=== PATIENT | female | born 2000 | race Hispanic/Latino ===

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

== ENCOUNTER 2019-04-03 02:23 | Inpatient (IN) | payer MEDICAID, OTHER ==
[2019-04-03 03:24] LABS: Bacteria,Urine 1+ /HPF (Negative); Bilirubin,Urine NEG (Negative); Blood,Urine NEG (Negative); Color,Urine Yellow (Yellow); Mucus,Urine FEW /HPF; Protein,Urine <15 mg/dL mg/dL (Negative); Urobilinogen,Urine < 2.0 mg/dL (<2.0)
[2019-04-03] MEDS ORDERED: LIDOCAINE (2%) 20 MG/1 ML VIAL 20 ML MDV INFILTRATI ONE (06:46)
[2019-04-03] MEDS ORDERED: fentaNYL 100 MCG/2 ML INJ IV PRN (06:46)
[2019-04-03] MEDS ORDERED: ePHEDrine SULFATE 50 MG/1 ML INJ IV PRN (06:46)
[2019-04-03] MEDS ORDERED: TERBUTALINE 1 MG/1 ML INJ SUB-Q PRN (06:46)
--- NOTE | 2019-04-03 06:55 | History and Physical Report ---
History of Present Illness Date of examination: 04/03/19 Date of admission: 04/03/2019 Chief complaint: Contractions History of present illness: 18 year old presents to L&D with contractions. Patient reports active movement. Denies leaking of fluid or vaginal bleeding. Patient received care at [facility] and she brings records with her. LMP 06/27/18. EDC 04/03/2019. significant for the following: chlamydia (treated and cured). labs are as follows: A positive, antibody screen negative, rubella immune, hepatitis B surface antigen negative, HIV negative, RPR nonreactive, chlamydia positive/negative, gonorrhea negative/negative, GBS negative, quad screen negative, 1 hour sugar test 98. 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 denies: gonorrhea, hepatitis B, hepatitis C, herpes, HIV, syphilis, trichomonas Family/Genetic History: none Social history: lives with family, full code. denies: smoking, alcohol abuse, prescription drug abuse, IV drug use - Obstetrical History Expected Date of Delivery: 04/03/19 Actual Gestation: 40 Week(s) 0 Day(s) : 3 Para: 1 Hx # Term Pregnancies: 1 Number of Pregnancies: 0 Spontaneous Abortions: 1 Induced : 0 Number of Living Children: 1 Medications and Allergies Allergies Allergy/AdvReac Type Severity Reaction Status Date / Time black beans Allergy Swelling Uncoded 09/11/13 13:27 Home Medications Medication Instructions Recorded Confirmed Last Taken Type Vitamin 1 tab PO DAILY 03/06/17 04/03/19 1 Day Ago History ~07/11/17 Active Meds: Active Medications Ephedrine Sulfate (Ephedrine Sulfate) 10 mg IV Q2M PRN PRN Reason: Hypotension Fentanyl (Sublimaze) 100 mcg IV Q2H PRN PRN Reason: Labor Pain Oxytocin/Sodium Chloride (Pitocin/Ns 20 Unit/1000ml Drip) 20 units in 1,000 mls @ 125 mls/hr IV DIRECT JOSHUA Lactated Ringer's (Lactated Ringers) 1,000 mls @ 125 mls/hr IV DIRECT JOSHUA Lidocaine (Xylocaine 2%) 20 ml INFILTRATI ONCE ONE Stop: 04/03/19 06:47 Terbutaline Sulfate (Brethine) 0.25 mg SUB-Q ONCE PRN PRN Reason: Hyperstimulation/Hypertonicity Review of Systems All systems: negative (contractions) - Vital Signs Vital signs: Vital Signs Pulse BP 94 H 121/73 04/03/19 02:39 04/03/19 02:39 Temp Pulse Resp BP Pulse Ox 98.1 F 110 H 114/75 99 04/03/19 02:45 04/03/19 05:30 04/03/19 03:53 04/03/19 05:30 - Physical Exam Abdomen: Positive: normal appearance, soft. Negative: distention, tenderness, guarding, rigidity Genitourinary (Female): Positive: normal external genitalia, normal perenium. Negative: perineal/vulvar lesions (no lesions seen on careful exam with bright light upon admission) Vagina: Positive: normal moisture Uterus: Positive: enlarged (S=D). Negative: tender Anus/Rectum: Positive: normal perianal skin Extremities: Positive: normal. Negative: tenderness - Obstetrical FHR: category 1 Uterine Contraction Monitor Mode: External Cervical Dilatation: 4 Cervical Effacement Percentage: 90 station: -1 Uterine Contraction Pattern: Regular Uterine Contraction Intensity: Moderate Results Abnormal lab results 04/03/19 Range/Units 03:06 Urine WBC (Auto) 11.0 H (0.0-6.0) /HPF U Epithel Cells (Auto) 21.0 H (0-13.0) /HPF All other labs normal. Assessment and Plan A: at 40 weeks gestation. Active labor. GBS negative. P: Admit. EFM. Anticipate vaginal .
[2019-04-03] MEDS ORDERED: OXYTOCIN 20 UNIT/1000ML DRIP 20 UNITS/1,000 ML BAG IV SCH (07:00)
[2019-04-03 08:27] LABS: Hemoglobin 9.7 gm/dl (10.1-14.3); Mean Corpuscular HGB Conc 31 % (30-34); Mean Corpuscular Volume 74 fl (79-97); Platelet Count 245 K/mm3 (140-440); Red Blood Count 4.19 M/mm3 (3.65-5.03); Red Cell Distribution Width 16.5 % (13.2-15.2)
[2019-04-03] MEDS: LACTATED RINGERS 1,000 ML IV SCH ×2 (08:27→10:49)
[2019-04-03] MEDS ORDERED: ONDANSETRON 4 MG/2 ML INJ IV PRN ×2 (09:05→12:46)
[2019-04-03] MEDS ORDERED: ONDANSETRON 4 MG/2 ML INJ ONE (09:10)
--- NOTE | 2019-04-03 09:30 | Progress Note ---
Assessment and Plan - Patient Problems (1) 40 weeks gestation of Current Visit: Yes Status: Acute (2) Active labor at term Current Visit: Yes Status: Acute Plan to address problem: Continue current management AROM @ 09:17, clear fluid, moderate amount Anticipate vaginal delivery Subjective - Subjective Date of service: 04/03/19 Principal diagnosis: IUP @ 40 weeks; Active Labor Interval history: see H&P Patient reports: movement normal, contractions, no loss of fluid, no vaginal bleeding Objective - Vital Signs Vital Signs: Vital Signs - 12hr 04/03/19 04/03/19 04/03/19 02:39 02:45 03:00 Temperature 98.1 F Pulse Rate 94 H 92 H Blood Pressure 121/73 O2 Sat by Pulse 98 Oximetry 04/03/19 04/03/19 04/03/19 03:05 03:10 03:14 Temperature Pulse Rate 87 94 H 76 Blood Pressure 113/66 O2 Sat by Pulse 99 99 Oximetry 04/03/19 04/03/19 04/03/19 03:15 03:20 03:25 Temperature Pulse Rate 92 H 83 86 Blood Pressure O2 Sat by Pulse 99 99 99 Oximetry 04/03/19 04/03/19 04/03/19 03:30 03:34 03:35 Temperature Pulse Rate 94 H 77 84 Blood Pressure 116/75 O2 Sat by Pulse 98 99 Oximetry 04/03/19 04/03/19 04/03/19 03:40 03:45 03:50 Temperature Pulse Rate 82 83 88 Blood Pressure O2 Sat by Pulse 99 100 100 Oximetry 04/03/19 04/03/19 04/03/19 03:53 03:55 04:00 Temperature Pulse Rate 78 86 85 Blood Pressure 114/75 O2 Sat by Pulse 99 99 Oximetry 04/03/19 04/03/19 04/03/19 04:05 04:10 04:14 Temperature Pulse Rate 83 82 89 Blood Pressure O2 Sat by Pulse 99 100 84 Oximetry 04/03/19 04/03/19 04/03/19 04:15 04:20 04:25 Temperature Pulse Rate 87 111 H 92 H Blood Pressure O2 Sat by Pulse 100 100 99 Oximetry 04/03/19 04/03/19 04/03/19 04:30 04:35 04:40 Temperature Pulse Rate 111 H 114 H 97 H Blood Pressure O2 Sat by Pulse 98 98 98 Oximetry 04/03/19 04/03/19 04/03/19 04:45 04:50 04:55 Temperature Pulse Rate 95 H 99 H 97 H Blood Pressure O2 Sat by Pulse 98 98 98 Oximetry 04/03/19 04/03/19 04/03/19 05:00 05:05 05:10 Temperature Pulse Rate 106 H 92 H 103 H Blood Pressure O2 Sat by Pulse 98 97 98 Oximetry 04/03/19 04/03/19 04/03/19 05:15 05:20 05:25 Temperature Pulse Rate 104 H 97 H 106 H Blood Pressure O2 Sat by Pulse 98 98 98 Oximetry 04/03/19 04/03/19 05:30 08:18 Temperature Pulse Rate 110 H 113 H Blood Pressure 111/70 O2 Sat by Pulse 99 Oximetry - Exam Abdomen: Present: normal appearance, soft FHR: auscultation normal, category 1 Uterine Contraction Monitor Mode: External Cervical Dilatation: 5 Cervical Effacement Percentage: 90 station: -1 Uterine Contraction Pattern: Regular - Labs Labs: Abnormal Labs 04/03/19 04/03/19 03:06 07:56 WBC 13.7 H Hgb 9.7 L MCV 74 L MCH 23 L RDW 16.5 H Urine WBC (Auto) 11.0 H U Epithel Cells (Auto) 21.0 H Laboratory Results - last 24 hr 04/03/19 04/03/19 04/03/19 03:06 07:56 07:56 WBC 13.7 H RBC 4.19 Hgb 9.7 L Hct 31.0 MCV 74 L MCH 23 L MCHC 31 RDW 16.5 H Plt Count 245 Urine Color Yellow Urine Turbidity Cloudy Urine pH 7.0 Ur Specific [place] 1.008 Urine Protein <15 mg/dl Urine Glucose (UA) Neg Urine Ketones Neg Urine Blood Neg Urine Nitrite Neg Urine Bilirubin Neg Urine Urobilinogen < 2.0 Ur Leukocyte Esterase Mod Urine WBC (Auto) 11.0 H Urine RBC (Auto) 2.0 U Epithel Cells (Auto) 21.0 H Urine Bacteria (Auto) 1+ Urine Mucus Few Blood Type A POSITIVE Antibody Screen Negative
[2019-04-03] MEDS ORDERED: OXYTOCIN DRIP 30 UNITS/500 ML BAG IV SCH (11:00)
[2019-04-03] MEDS: MINERAL OIL 30 ML ORAL LIQD PO PRN ×3 (11:50→12:10)
--- NOTE | 2019-04-03 12:43 | Procedure Note ---
OB Delivery Note - Delivery Date of Delivery: 04/03/19 (12:05) Surgeon: DEMOND SIGALA (CN) Estimated blood loss: 100cc - Vaginal Delivery presentation: vertex Delivery position: OA Intrapartum events: extend. bradycardia (to the 90's during second stage pushing), shoulder dystocia (resolved in less than 30 secs with Charu Maneuver and Suprapubic pressure) Delivery induction: none Delivery augmentation: rupture of membranes (AROM @ 9:17), pitocin Delivery monitor: external FHT, external uterine Route of delivery: (12:05) Delivery placenta: spontaneous (12:13) Delivery cord: nuchal cord (CAN x1 tight; double-clamped and cut at the perineum prior to delivery of the body), 3 umbilical vessels Episiotomy: none Delivery laceration: 1st degree (vaginal) Delivery repair: vicryl (3-0 CT1) Anesthesia: local Delivery comments: of a non-vigorous 7 lbs 14 oz male on 04/03/19 @ 12:05. After delivery of head, tight nuchal cord noted, double-clamped and cut at the perineum. Shoulder dystocia called and was resolved in less than 30 secs with Charu and Suprapubic pressure. Baby immediately handed over to NICU/RESP team personnel for resuscitation. Spontaneous delivery of placenta, Adrien-side presenting @ 12:13. Small lochia noted. Fundal massage and IV Pitocin bolus initiated. Fundus F/ML/U-2. Placenta intact; was discarded. Small first degree vaginal laceration noted and repaired using 3-0 vicryl needle under local anesthesia. Pt tolerated the procedure well. Mom and baby [id number] in stable condition. - Infant B at 1 minute: 8 at 5 minutes: 9 Gender: Male (7 lbs 14 oz (3559 gm); 19 in)
[2019-04-03] MEDS ORDERED: PROMETHAZINE 25 MG TAB PO PRN (12:46)
[2019-04-03] MEDS ORDERED: PROMETHAZINE 25 MG RECT SUPP PR PRN (12:46)
[2019-04-03] MEDS ORDERED: diphenhydrAMINE 25 MG CAP PO PRN (12:46)
[2019-04-03] MEDS ORDERED: MAGNESIUM HYDROXIDE (MOM) ORAL LIQD UDC PO PRN (12:46)
[2019-04-03] MEDS ORDERED: ACETAMINOPHEN 325 MG TAB PO PRN (12:46)
[2019-04-03] MEDS ORDERED: HYDROcodone/ACETAMINOPHEN 5-325 MG TAB PO PRN (12:46)
[2019-04-03] MEDS ORDERED: LANOLIN/ZINC/DIMETHICONE (LANSINOH) 7 GM TP PRN (12:46)
[2019-04-03] MEDS ORDERED: WITCH HAZEL/ GLYCERIN PAD TP PRN (12:46)
[2019-04-03] MEDS: IBUPROFEN 600 MG TAB PO SCH ×2 (14:05→20:11)
[2019-04-04] MEDS ORDERED: TETANUS,DIPH,PERTUSS(ACELL) VACCINE 0.5 ML SYRINGE IM ONE (05:15)
[2019-04-04] MEDS: IBUPROFEN 600 MG TAB PO SCH (05:23)
[2019-04-04 07:47] LABS: Hematocrit 26.5 % (30.3-42.9); Hemoglobin 8.2 gm/dl (10.1-14.3)
[2019-04-04 09:04] VITALS: BP 107/70
[2019-04-04] MEDS ORDERED: PRENATAL VIT27-FE FUMARATE-FOLIC ACID VIT TAB PO SCH (10:00)
[2019-04-04] MEDS ORDERED: FERROUS SULFATE 325 MG TAB PO SCH (10:00)
--- NOTE | 2019-04-04 10:51 | Progress Note ---
Assessment and Plan - Patient Problems (1) Status post normal vaginal delivery Current Visit: No Status: Acute Plan to address problem: D/C later day after 24 hrs PP if baby ok'd for d/c F/U at office in 6 wks for routine PP visit or prn (2) Anemia in puerperium, baby delivered during current episode of care Current Visit: No Status: Acute Plan to address problem: Asymptomatic Continue daily oral iron supplementation as directed Increase iron rich foods into diet Subjective - Subjective Date of service: 04/04/19 Principal diagnosis: S/P ; PPD#1; Anemia Interval history: See admission H & P; OB delivery summary and PP progress notes Patient reports: appetite normal, voiding normally, pain well controlled, ambulating normally, other (Request to go home today if possible), no bowel movement : doing well, bottle feeding (and , working on a better latch) Objective - Vital Signs Latest vital signs: Vital Signs Temp Pulse Resp BP BP Pulse Ox 04/04/19 08:22 97.9 F 80 18 107/70 04/04/19 00:42 98.4 F 96 H 18 108/56 98 04/03/19 21:25 98.6 F 85 18 109/67 98 04/03/19 14:46 98.0 F 103 H 18 111/71 98 04/03/19 13:51 86 119/68 04/03/19 13:35 103 H 113/67 04/03/19 13:20 99 H 105/64 04/03/19 13:05 90 104/57 04/03/19 12:50 93 H 113/60 04/03/19 12:43 98 H 110/55 04/03/19 12:05 126 H 96 04/03/19 12:02 164 H 92 04/03/19 12:00 132 H 98 04/03/19 11:55 123 H 97 04/03/19 11:51 67 94 04/03/19 11:50 88 04/03/19 11:45 129 H 98 04/03/19 11:37 99 H 98 Intake and Output 04/03/19 04/04/19 04/04/19 23:59 07:59 15:59 Intake Total 480 360 480 Output Total 800 800 Balance -320 -440 480 Intake: Oral 480 Intake, Free Water 480 360 Output: Urine 800 800 Void 800 800 Other: Total, Intake Amount 480 Total, Output Amount 400 800 # Voids Void 2 1 - Exam Breasts: Present: normal Cardiovascular: Present: Regular rate Lungs: Present: Normal air movement Abdomen: Present: soft Uterus: Present: firm, fundal height below umbilicus (U-1) Extremities: Present: normal Deep Tendon Reflex Grade: Normal +2 Incision: Present: other (1st degree perineal laceration, healing as expected) - Labs Labs: Abnormal lab results 04/04/19 Range/Units 07:17 Hgb 8.2 L (10.1-14.3) gm/dl Hct 26.5 L (30.3-42.9) %
--- NOTE | 2019-04-04 10:56 | Discharge Summary ---
Providers - Providers Date of Admission: 04/03/19 02:24 Date of discharge: 04/04/19 (1400) Attending physician: ARACELY CAPPS MD Primary care physician: ARACELY CAPPS MD Hospitalization Reason for admission: active labor, IUP at term Delivery: Episiotomy: none Laceration: 1st degree (healing as expected) Other procedures: none complications: none Discharge diagnosis: IUP at term delivered, other (Anemia) baby: male Hospital course: See admission H & P; OB delivery summary and PP progress notes Condition at discharge: Stable Disposition: DC-01 TO HOME OR SELFCARE - Discharge Diagnoses (1) Status post normal vaginal delivery Status: Acute (2) Anemia in puerperium, baby delivered during current episode of care Status: Acute Comment: asymptomatic; continue iron therapy Plan - Discharge Medications Prescriptions: Ferrous Sulfate [Feosol 325 MG tab] 325 mg PO BID 30 Days #60 tablet - Provider Discharge Summary Activity: routine, no sex for 6 weeks, no heavy lifting 4 weeks, no strenuous exercise Diet: other (Iron rich diet) Instructions: routine Additional instructions: [] Smoking cessation referral if applicable(refer to patient education folder for contact #) [] Refer to [facility] Booklet Call your doctor immediately for: * Fever > 100.5 * Heavy vaginal bleeding ( >1 pad per hour) * Severe persistent headache * Shortness of breath * Reddened, hot, painful area to leg or breast * Drainage or odor from incision. * Keep laceration site clean and dry at all times and follow doctor's instructions regarding bathing/showering * Continue daily iron supplementation as directed with OJ - Follow up plan Follow up: ARACELY CAPPS MD [Primary Care Provider] - 6 Weeks
== END 2019-04-04 17:05 | disposition home or self-care (01) | DRG 807 ==
LOC: TRG 02:23 → LD 02:24 → TRG 02:28 → OB 16:46
PROVIDERS: ADMIT Obstetrics & Gynecology; ATTEND Obstetrics & Gynecology
PROC: 10E0XZZ Delivery of Products of Conception, External Approach (ICD-10-PCS; principal; 2019-04-03)
PROC: 0HQ9XZZ Repair Perineum Skin, External Approach (ICD-10-PCS; 2019-04-03)
PROC: 3E0234Z Introduction of Serum, Toxoid and Vaccine into Muscle, Percutaneous Approach (ICD-10-PCS; 2019-04-04)
DX: O99.03 Anemia complicating the puerperium (principal); Z37.0 Single live birth; O66.0 Obstructed labor due to shoulder dystocia; O69.1XX0 Labor and delivery complicated by cord around neck, with compression, not applicable or unspecified; Z3A.40 40 weeks gestation of pregnancy; Z23 Encounter for immunization; O70.0 First degree perineal laceration during delivery; D64.9 Anemia, unspecified; Z91.018 Allergy to other foods; O76 Abnormality in fetal heart rate and rhythm complicating labor and delivery
CPT/HCPCS: 36415; 59025; 81001; 85014; 85018; 85027; 86850; 86900; 86901; 87086; 90471; 90715; G0378; A6250; J2405; J2590; J7120